=== PATIENT | female | born 1995 | race Caucasian/White ===

== ENCOUNTER 2021-09-15 11:48 | Emergency (ER) | payer OTHER ==
[~2021-09-15] VITALS: Ht 154.9 cm; Wt 129.0 kg
[2021-09-15 12:00] VITALS: BP 138/91
[2021-09-15] MEDS ORDERED: ketorolac trometh. 30mg/ml inj. IM ONE (13:00)
[2021-09-15] MEDS ORDERED: HYDROcodone/acetaminophen 10/325mg tab PO ONE (13:00)
== END 2021-09-15 13:24 | disposition home or self-care (01) ==
LOC: ER 11:50
DX: M54.50 Low back pain, unspecified (principal); R06.02 Shortness of breath; R53.1 Weakness; G89.29 Other chronic pain; R07.89 Other chest pain; Z88.8 Allergy status to other drugs, medicaments and biological substances
CPT/HCPCS: 96372; 99283; J1885